=== PATIENT | male | born 1950 | race Caucasian/White ===

== ENCOUNTER 2020-01-12 12:29 | Observation (INO) ==
[2020-01-12 13:21] LABS: ABS Eosinophils 0.1 10^3/ul (0-0.6); ABS Lymphocytes 0.7 10^3/ul (1.0-4.8); ABS Monocytes 0.7 10^3/ul (0-0.8); ABS Neutrophils 4.2 10^3/ul (1.5-7.7); Eosinophil % 1.7 %; Hematocrit 43 % (42-52); Hemoglobin 15.2 g/dL (14.0-18.0); Lymphocyte % 12.2 %; Mean Corpuscular HGB Conc 35 g/dL (31-36); Mean Corpuscular Hemoglobin 33 pg (27-31); Mean Corpuscular Volume 95 fL (80-94); Mean Platelet Volume 6.5 fL (7.4-10.4); Platelet Count 188 10^3/uL (150-450); Red Blood Count 4.56 10^6 /uL (4.18-5.48); Red Cell Distribution Width 14 % (10-15); White Blood Count 5.7 10^3/uL (3.5-10.8)
[2020-01-12 13:37] LABS: ALT 38 U/L (7-52); AST 37 U/L (13-39); Albumin 4.5 g/dL (3.2-5.2); Albumin/Globulin Ratio 1.9 (1-3); Alkaline Phosphatase 34 U/L (34-104); Anion Gap 5 mmol/L (2-11); BUN/Creatinine Ratio 19.8 (8-20); Blood Urea Nitrogen 18 mg/dL (6-24); C Reactive Protein < 1.00 mg/L (<8.01); CO2 Carbon Dioxide 30 mmol/L (22-32); Calcium 9.6 mg/dL (8.6-10.3); Chloride 100 mmol/L (101-111); EGFR African American 100.6 (>60); EGFR Non-African American 83.1 (>60); Globulin 2.4 g/dL (2-4); Glucose 119 mg/dL (70-100); Potassium 3.7 mmol/L (3.5-5.0); Sodium 135 mmol/L (135-145); Total Protein 6.9 g/dL (6.4-8.9)
[2020-01-12] MEDS ORDERED: Iohexol 300 (CONTRAST) 10 ML SDV IV ONE (14:08)
[2020-01-12] MEDS ORDERED: NS 0.9% 1000 ml BAG 1,000 ML IV SCH (18:00)
[2020-01-12] MEDS ORDERED: PEG 3000 GI LAVAGE 1 GALLON PO ONE (19:00)
[2020-01-12] MEDS: NS 0.9% 1000 ml BAG 1,000 ML IV SCH (20:17)
[2020-01-12 21:04] LABS: ABS Eosinophils 0.2 10^3/ul (0-0.6); ABS Monocytes 0.7 10^3/ul (0-0.8); ABS Neutrophils 4.3 10^3/ul (1.5-7.7); Eosinophil % 3.2 %; Hematocrit 39 % (42-52); Hemoglobin 13.5 g/dL (14.0-18.0); Lymphocyte % 15.5 %; Mean Corpuscular HGB Conc 35 g/dL (31-36); Mean Corpuscular Hemoglobin 33 pg (27-31); Mean Corpuscular Volume 95 fL (80-94); Mean Platelet Volume 6.4 fL (7.4-10.4); Platelet Count 175 10^3/uL (150-450); Red Blood Count 4.11 10^6 /uL (4.18-5.48); Red Cell Distribution Width 13 % (10-15); White Blood Count 6.2 10^3/uL (3.5-10.8)
[2020-01-13 02:37] LABS: ABS Eosinophils 0.3 10^3/ul (0-0.6); ABS Lymphocytes 1.2 10^3/ul (1.0-4.8); ABS Monocytes 0.7 10^3/ul (0-0.8); ABS Neutrophils 3.3 10^3/ul (1.5-7.7); Eosinophil % 5.4 %; Hematocrit 35 % (42-52); Hemoglobin 12.3 g/dL (14.0-18.0); Lymphocyte % 21.6 %; Mean Corpuscular HGB Conc 35 g/dL (31-36); Mean Corpuscular Hemoglobin 33 pg (27-31); Mean Corpuscular Volume 94 fL (80-94); Mean Platelet Volume 6.4 fL (7.4-10.4); Platelet Count 161 10^3/uL (150-450); Red Blood Count 3.75 10^6 /uL (4.18-5.48); Red Cell Distribution Width 14 % (10-15); White Blood Count 5.5 10^3/uL (3.5-10.8)
[2020-01-13] MEDS: NS 0.9% 1000 ml BAG 1,000 ML IV SCH (06:23)
[2020-01-13] MEDS ORDERED: PEG 3000 GI LAVAGE 1 GALLON PO ONE (07:00)
[2020-01-13 09:21] LABS: ABS Eosinophils 0.1 10^3/ul (0-0.6); ABS Lymphocytes 0.7 10^3/ul (1.0-4.8); ABS Monocytes 0.4 10^3/ul (0-0.8); ABS Neutrophils 3.3 10^3/ul (1.5-7.7); Eosinophil % 2.7 %; Hematocrit 37 % (42-52); Hemoglobin 12.8 g/dL (14.0-18.0); Lymphocyte % 14.8 %; Mean Corpuscular HGB Conc 35 g/dL (31-36); Mean Corpuscular Hemoglobin 33 pg (27-31); Mean Corpuscular Volume 95 fL (80-94); Mean Platelet Volume 6.4 fL (7.4-10.4); Platelet Count 178 10^3/uL (150-450); Red Blood Count 3.85 10^6 /uL (4.18-5.48); Red Cell Distribution Width 14 % (10-15); White Blood Count 4.6 10^3/uL (3.5-10.8)
[2020-01-13 09:34] LABS: BUN/Creatinine Ratio 12.5 (8-20); Calcium 8.6 mg/dL (8.6-10.3); EGFR African American 116.7 (>60); EGFR Non-African American 96.4 (>60); Potassium 3.6 mmol/L (3.5-5.0)
[2020-01-13 19:21] LABS: Hematocrit 34 % (42-52); Hemoglobin 11.7 g/dL (14.0-18.0); Mean Corpuscular HGB Conc 34 g/dL (31-36); Mean Corpuscular Hemoglobin 33 pg (27-31); Mean Corpuscular Volume 95 fL (80-94); Mean Platelet Volume 6.8 fL (7.4-10.4); Platelet Count 158 10^3/uL (150-450); Red Blood Count 3.61 10^6 /uL (4.18-5.48); Red Cell Distribution Width 14 % (10-15)
[2020-01-14 10:54] LABS: ABS Basophils 0.1 10^3/ul (0-0.2); ABS Eosinophils 0.2 10^3/ul (0-0.6); ABS Lymphocytes 0.8 10^3/ul (1.0-4.8); ABS Monocytes 0.4 10^3/ul (0-0.8); ABS Neutrophils 2.6 10^3/ul (1.5-7.7); Eosinophil % 4.9 %; Hematocrit 35 % (42-52); Hemoglobin 12.1 g/dL (14.0-18.0); Lymphocyte % 20.4 %; Mean Corpuscular HGB Conc 35 g/dL (31-36); Mean Corpuscular Hemoglobin 33 pg (27-31); Mean Corpuscular Volume 96 fL (80-94); Mean Platelet Volume 6.9 fL (7.4-10.4); Platelet Count 172 10^3/uL (150-450); Red Blood Count 3.66 10^6 /uL (4.18-5.48); Red Cell Distribution Width 13 % (10-15); White Blood Count 4.1 10^3/uL (3.5-10.8)
[2020-01-14 11:33] VITALS: BP 156/88
== END 2020-01-14 13:00 | disposition home or self-care (01) ==
LOC: ED 12:29 → SSU 12:29
PROVIDERS: ADMIT Internal Medicine; ATTEND Internal Medicine